=== PATIENT | female | born 1985 | race Caucasian/White ===

== ENCOUNTER 2017-09-15 07:10 | Emergency (ER) | payer SELFPAY ==
[~2017-09-15] VITALS: Ht 172.7 cm; Wt 62.6 kg
[2017-09-15 07:11] VITALS: BP 128/88
== END 2017-09-15 08:10 | disposition left against medical advice (07) ==
LOC: ED 07:47
DX: J02.9 Acute pharyngitis, unspecified (principal); Z53.21 Procedure and treatment not carried out due to patient leaving prior to being seen by health care provider

== ENCOUNTER 2018-08-04 23:51 | Inpatient (IN) | payer OTHER ==
[~2018-08-04] VITALS: Ht 170.2 cm; Wt 72.2 kg
[2018-08-05] VITALS: BP 126/85
[2018-08-05] MEDS ORDERED: BETAMETHASONE 6 MG/ML, 5ML IM ONE (00:18)
[2018-08-05] MEDS: LACTATED RINGERS 1,000 ML IV PRN ×3 (00:21→20:46)
[2018-08-05] MEDS: BETAMETHASONE 6 MG/ML, 5ML IM SCH (00:21)
[2018-08-05 01:03] LABS: BASOPHILS # (AUTO) 0.06 x10^3/uL (0-0.1); BASOPHILS % (AUTO) 1 % (0-1); EOSINOPHILS # (AUTO) 0.03 x10^3/uL (0-0.4); EOSINOPHILS % (AUTO) 0 % (1-7); LYMPHOCYTES % (AUTO) 15 % (22-44); MD NO; MEAN CORPUSCULAR HEMOGLOBIN 31.1 pg (27.0-34.8); MEAN CORPUSCULAR HGB CONC 33.4 g/dL (32.4-35.8); MEAN CORPUSCULAR VOLUME 93.3 fL (80-100); MEAN PLATELET VOLUME 9.3 fL (7.4-10.4); MONOCYTES # (AUTO) 0.88 x10^3/uL (0.2-0.8); MONOCYTES % (AUTO) 7 % (2-9); NEUTROPHILS # (AUTO) 10.46 x10^3/uL (1.8-6.8); NEUTROPHILS % (AUTO) 78 % (42-75); PLATELET COUNT 258 x10^3/uL (130-400); RED BLOOD COUNT 4.19 x10^6/uL (3.82-5.3); RED CELL DISTRIBUTION WIDTH 12.7 % (9.6-15.2)
[2018-08-05] MEDS ORDERED: MAGNESIUM SULFATE PMX 4GM/100M 100 ML ONE (01:11)
[2018-08-05] MEDS ORDERED: MAGNESIUM SULF. PMX 20GM/500ML 500 ML IV ONE ×3 (01:12→18:00)
[2018-08-05 01:18] LABS: MICROSCOPIC INDICATED
[2018-08-05] MEDS ORDERED: MAGNESIUM SULFATE PMX 4GM/100M 100 ML IVPB ONE (01:30)
[2018-08-05] MEDS: AZITHROMYCIN 1,000 MG in SODIUM CHLORIDE 0.9% 250 ML IV SCH (01:31)
[2018-08-05 01:32] LABS: CULTURE INDICATED? NO
[2018-08-05] MEDS: MAGNESIUM SULF. PMX 20GM/500ML 500 ML IV SCH ×3 (01:42→18:05)
[2018-08-05] MEDS ORDERED: CLINDAMYCIN PMX 900MG/50ML 50 ML ONE ×3 (02:06→17:18)
[2018-08-05] MEDS: CLINDAMYCIN PMX 900MG/50ML 50 ML IV SCH ×3 (02:47→17:22)
[2018-08-05] MEDS ORDERED: PRENATAL VIT/IRON/FA 1 EACH TABLET ONE (08:45)
[2018-08-05] MEDS: PRENATAL VIT/IRON/FA 1 EACH TABLET PO SCH (08:50)
[2018-08-05] MEDS: ACYCLOVIR 400 MG TABLET PO SCH ×3 (08:50→20:19)
[2018-08-06] MEDS: BETAMETHASONE 6 MG/ML, 5ML IM SCH (00:05)
[2018-08-06] MEDS ORDERED: CALCIUM GLUCONATE 4.6 MEQ/10 ML IV PRN (01:00)
[2018-08-06] MEDS ORDERED: CLINDAMYCIN PMX 900MG/50ML 50 ML ONE ×2 (01:01→08:37)
[2018-08-06] MEDS: AZITHROMYCIN 1,000 MG in SODIUM CHLORIDE 0.9% 250 ML IV SCH (01:27)
[2018-08-06] MEDS: CLINDAMYCIN PMX 900MG/50ML 50 ML IV SCH ×2 (01:28→09:41)
[2018-08-06] MEDS ORDERED: MAGNESIUM SULF. PMX 20GM/500ML 500 ML IV ONE ×3 (03:16→22:21)
[2018-08-06] MEDS: MAGNESIUM SULF. PMX 20GM/500ML 500 ML IV SCH ×3 (03:21→22:23)
[2018-08-06 07:30] VITALS: BP 122/75
[2018-08-06] MEDS ORDERED: PRENATAL VIT/IRON/FA 1 EACH TABLET ONE (08:36)
[2018-08-06] MEDS: PRENATAL VIT/IRON/FA 1 EACH TABLET PO SCH (09:07)
[2018-08-06] MEDS: ACYCLOVIR 400 MG TABLET PO SCH ×3 (09:07→21:15)
[2018-08-06] MEDS ORDERED: PREN1TAB60 PO (11:46)
[2018-08-06] MEDS ORDERED: ACYC-114 PO (11:47)
[2018-08-06] MEDS: LACTATED RINGERS 1,000 ML IV SCH ×2 (12:57→22:20)
[2018-08-07] MEDS ORDERED: LACTATED RINGERS 1,000 ML IV PRN (00:12)
[2018-08-07] MEDS ORDERED: CLINDAMYCIN PMX 900MG/50ML 50 ML ONE (01:21)
[2018-08-07] MEDS: AZITHROMYCIN 1,000 MG in SODIUM CHLORIDE 0.9% 250 ML IV SCH (01:22)
[2018-08-07] MEDS: CLINDAMYCIN PMX 900MG/50ML 50 ML IV SCH (01:23)
[2018-08-07] MEDS ORDERED: MAGNESIUM SULF. PMX 20GM/500ML 500 ML IV SCH (03:30)
[2018-08-07] MEDS ORDERED: PRENATAL VIT/IRON/FA 1 EACH TABLET ONE (08:47)
[2018-08-07] MEDS: PRENATAL VIT/IRON/FA 1 EACH TABLET PO SCH (08:57)
[2018-08-07] MEDS: ACYCLOVIR 400 MG TABLET PO SCH ×3 (08:57→21:00)
[2018-08-07] MEDS: CLINDAMYCIN 300 MG CAPSULE PO SCH ×2 (08:57→16:50)
[2018-08-07 09:05] LABS: MEAN CORPUSCULAR HEMOGLOBIN 31.5 pg (27.0-34.8); MEAN CORPUSCULAR HGB CONC 33.2 g/dL (32.4-35.8); MEAN PLATELET VOLUME 8.8 fL (7.4-10.4); PLATELET COUNT 232 x10^3/uL (130-400); RED BLOOD COUNT 3.72 x10^6/uL (3.82-5.3)
[2018-08-07 10:03] LABS: MD YES
[2018-08-07 10:08] LABS: BAND#(MANUAL) 0.35 x10^3/uL; BANDS%(MANUAL) 2 % (0-7); LYMPH#(MANUAL) 2.63 x10^3/uL (1-3.4); LYMPHS% (MANUAL) 15 % (22-44); METAMYELOCYTES# (MANUAL) 0.18 x10^3/uL (0-0); METAMYELOCYTES% (MANUAL) 1 % (0-1); MONOS#(MANUAL) 0.88 x10^3/uL (0.3-2.7); MONOS% (MANUAL) 5 % (2-9); NRBC % (MANUAL) 1 % (0-1); SEG#(MANUAL) 13.48 x10^3/uL (1.8-6.8); SEGS% (MANUAL) 77 % (42-75)
[2018-08-07 10:09] LABS: <PLATELET ESTIMATE> ADEQUATE
[2018-08-07 10:10] LABS: LARGE PLATELETS 1+
[2018-08-07] MEDS ORDERED: OXYTOCIN 30U/ 0.9% NaCL 500ML 500 ML ONE ×2 (10:23→23:06)
[2018-08-07] MEDS ORDERED: NEWBORN KIT ONE (10:23)
[2018-08-07] MEDS ORDERED: LIDOCAINE 1%, 20ML ONE (10:23)
[2018-08-07] MEDS ORDERED: MISOPROSTOL 200 MCG TABLET ONE (10:23)
[2018-08-07] MEDS ORDERED: OXYTOCIN 30U/ 0.9% NaCL 500ML 500 ML IV PRN (10:43)
[2018-08-07] MEDS ORDERED: D5%-LACTATED RINGERS 1,000 ML IV SCH (10:43)
[2018-08-07] MEDS ORDERED: ONDANSETRON 2MG/ML, 2ML IVPush PRN (11:00)
[2018-08-07] MEDS ORDERED: FENTANYL PF 100 MCG/2ML IVPush PRN (11:00)
[2018-08-07] MEDS ORDERED: FENTANYL PF 100 MCG/2ML IV PRN (11:00)
[2018-08-07] MEDS: LACTATED RINGERS 1,000 ML IV SCH ×4 (11:28→15:05)
[2018-08-07] MEDS ORDERED: FENTANYL/BUPIV./NS/PF 250 ML EPIDCONT SCH ×2 (14:40→16:09)
[2018-08-07] MEDS ORDERED: FENTANYL PF 500 MCG, BUPIVACAINE/PF 0.5%, 30ML 62.5 ML in SODIUM CHLORIDE 0.9% 177.5 ML EPIDCONT SCH (15:00)
[2018-08-07] MEDS ORDERED: BUPIVACAINE 0.25% ONE ×3 (15:22→20:10)
[2018-08-07] MEDS ORDERED: LACTATED RINGERS 1,000 ML IV SCH (16:09)
[2018-08-07] MEDS ORDERED: EPHEDRINE 50 MG/ML, 1ML IVPush PRN (16:30)
[2018-08-07] MEDS ORDERED: LACTATED RINGERS 1,000 ML IVBOLUS PRN (16:30)
[2018-08-07 19:30] VITALS: BP 104/53
[2018-08-07] MEDS ORDERED: CALCIUM CARBONATE 500 MG TAB.CHEW PO PRN (23:00)
[2018-08-07] MEDS ORDERED: HYDROcodone/APAP 5/325 TABLET PO PRN (23:00)
[2018-08-07] MEDS ORDERED: MISOPROSTOL 200 MCG TABLET PO PRN (23:00)
[2018-08-07] MEDS ORDERED: BISACODYL 10 MG SUPP PR PRN (23:00)
[2018-08-07] MEDS ORDERED: OXYcodone/APAP 5/325MG TABLET PO PRN (23:00)
[2018-08-07] MEDS: OXYTOCIN 30U/ 0.9% NaCL 500ML 500 ML IV SCH (23:11)
[2018-08-08] VITALS (7 sets, daily range): BP systolic 96–121; BP diastolic 59–81
[2018-08-08] MEDS: LACTATED RINGERS 1,000 ML IV SCH (01:00)
[2018-08-08] MEDS ORDERED: AZITHROMYCIN 500 MG TABLET PO SCH (01:30)
[2018-08-08 07:16] LABS: MEAN CORPUSCULAR HEMOGLOBIN 31.4 pg (27.0-34.8); MEAN CORPUSCULAR HGB CONC 33.2 g/dL (32.4-35.8); MEAN CORPUSCULAR VOLUME 94.4 fL (80-100); MEAN PLATELET VOLUME 8.9 fL (7.4-10.4); PLATELET COUNT 209 x10^3/uL (130-400); RED BLOOD COUNT 3.77 x10^6/uL (3.82-5.3)
[2018-08-08 07:49] LABS: MD YES
[2018-08-08 07:52] LABS: BAND#(MANUAL) 0.77 x10^3/uL; BANDS%(MANUAL) 4 % (0-7); EOS#(MANUAL) 0.19 x10^3/uL (0.0-0.4); EOS% (MANUAL) 1 % (1-7); LYMPHS% (MANUAL) 13 % (22-44); MONOS#(MANUAL) 1.15 x10^3/uL (0.3-2.7); MONOS% (MANUAL) 6 % (2-9); SEG#(MANUAL) 14.59 x10^3/uL (1.8-6.8); SEGS% (MANUAL) 76 % (42-75)
[2018-08-08 07:54] LABS: <PLATELET ESTIMATE> ADEQUATE; LARGE PLATELETS 1+
[2018-08-08] MEDS: OXYTOCIN 30U/ 0.9% NaCL 500ML 500 ML IV SCH ×2 (08:55→19:25)
[2018-08-08] MEDS: IBUPROFEN 600 MG TABLET PO PRN ×3 (09:37→23:20)
[2018-08-08] MEDS: ACYCLOVIR 400 MG TABLET PO SCH (09:37)
[2018-08-08] MEDS: PRENATAL VIT/IRON/FA 1 EACH TABLET PO SCH (09:38)
[2018-08-08] MEDS: NITROFURANTOIN (MACROBID) 100 MG CAPSULE PO SCH ×2 (09:38→23:20)
[2018-08-08] MEDS ORDERED: RHOGAM FROM BLOOD BANK 1 NOTE EA IM/IV ONE (12:00)
[2018-08-08] MEDS: OXYcodone/APAP 5/325MG TABLET PO PRN ×2 (14:23→19:42)
[2018-08-08] MEDS: DOCUSATE 100 MG CAPSULE PO PRN (19:42)
[2018-08-09] MEDS: OXYTOCIN 30U/ 0.9% NaCL 500ML 500 ML IV SCH ×2 (04:55→14:55)
[2018-08-09] MEDS: DOCUSATE 100 MG CAPSULE PO PRN ×2 (06:21→22:28)
[2018-08-09] MEDS: IBUPROFEN 600 MG TABLET PO PRN ×3 (06:21→22:28)
[2018-08-09 07:22] VITALS: BP 111/70
[2018-08-09] MEDS: PRENATAL VIT/IRON/FA 1 EACH TABLET PO SCH (11:54)
[2018-08-09] MEDS: NITROFURANTOIN (MACROBID) 100 MG CAPSULE PO SCH ×2 (11:54→22:28)
[2018-08-09 19:40] VITALS: BP 111/74
[2018-08-09] MEDS: HYDROcodone/APAP 5/325 TABLET PO PRN ×2 (22:28→23:05)
[2018-08-10] MEDS: OXYTOCIN 30U/ 0.9% NaCL 500ML 500 ML IV SCH ×2 (00:55→10:55)
[2018-08-10] MEDS: IBUPROFEN 600 MG TABLET PO PRN (06:14)
[2018-08-10] MEDS: PRENATAL VIT/IRON/FA 1 EACH TABLET PO SCH (10:57)
[2018-08-10] MEDS: HYDROcodone/APAP 5/325 TABLET PO PRN (10:57)
[2018-08-10] MEDS: DOCUSATE 100 MG CAPSULE PO PRN (10:57)
[2018-08-10 11:08] VITALS: BP 116/78
[2018-08-10] MEDS: NITROFURANTOIN (MACROBID) 100 MG CAPSULE PO SCH (11:25)
[2018-08-10] MEDS ORDERED: DOCU-131 PO (12:39)
[2018-08-10] MEDS ORDERED: HYDR-3240 PO (12:39)
[2018-08-10] MEDS ORDERED: IBUP-1222 PO (12:39)
[2018-08-10] MEDS ORDERED: NITR100C56 PO (12:40)
[2018-08-10] MEDS ORDERED: DIPH,PERTUSS(ACELL),TET VAC/PF NC IM-VACC ONE (15:30)
== END 2018-08-10 15:38 | disposition home or self-care (01) | DRG 807 ==
LOC: LDOP 23:51 → LDIP 08-05 00:32 → 2NW 08-08 00:07
PROVIDERS: ADMIT Obstetrics & Gynecology; ATTEND Obstetrics & Gynecology
PROC: 0KQM0ZZ Repair Perineum Muscle, Open Approach (ICD-10-PCS; principal; 2018-08-07)
PROC: 10E0XZZ Delivery of Products of Conception, External Approach (ICD-10-PCS; 2018-08-07)
PROC: 3E033VJ Introduction of Other Hormone into Peripheral Vein, Percutaneous Approach (ICD-10-PCS; 2018-08-07)
PROC: 3E0R3BZ Introduction of Anesthetic Agent into Spinal Canal, Percutaneous Approach (ICD-10-PCS; 2018-08-07)
PROC: 00HU33Z Insertion of Infusion Device into Spinal Canal, Percutaneous Approach (ICD-10-PCS; 2018-08-07)
PROC: 30233S1 Transfusion of Nonautologous Globulin into Peripheral Vein, Percutaneous Approach (ICD-10-PCS; 2018-08-07)
DX: O42.913 Preterm premature rupture of membranes, unspecified as to length of time between rupture and onset of labor, third trimester (principal); Z37.0 Single live birth; O69.81X0 Labor and delivery complicated by cord around neck, without compression, not applicable or unspecified; O70.1 Second degree perineal laceration during delivery; Z3A.33 33 weeks gestation of pregnancy; Z88.0 Allergy status to penicillin; O76 Abnormality in fetal heart rate and rhythm complicating labor and delivery
CPT/HCPCS: 36415; J2790; 76805; 81001; 82803; 83735; 85025; 85461; 86850; 86870; 86900; 86922; 86923; 87081; 89060; 90715; G0378; J0456; J0702; J2590; J3475; J7050; J7120; Q0114

== ENCOUNTER 2020-01-29 22:12 | Emergency (ER) | payer OTHER ==
[~2020-01-29] VITALS: Ht 170.2 cm; Wt 66.3 kg
[~2020-01-29 22:12] MED LIST: ACYC-114 PO; DOCU-131 PO; HYDR-3240 PO; IBUP-1222 PO; NITR100C56 PO; PREN1TAB60 PO
[2020-01-29] MEDS ORDERED: DEXAMETHASONE 4 MG/ML, 1ML PO ONE (23:30)
[2020-01-29] MEDS ORDERED: DEXAMETHASONE 4 MG TABLET ONE (23:36)
[2020-01-30 00:08] VITALS: BP 114/71
== END 2020-01-30 00:10 | disposition home or self-care (01) ==
LOC: ED 01-30 00:07
DX: U07.1 COVID-19 (principal); B34.9 Viral infection, unspecified; R06.02 Shortness of breath; R07.89 Other chest pain; R05 Cough; R09.81 Nasal congestion
CPT/HCPCS: 71045; 93005; 99283; J1100